=== PATIENT | female | born 1960 | race Two or more races ===

== ENCOUNTER 2025-06-04 09:49 | Emergency (ER) | payer MEDICAID, OTHER ==
[~2025-06-04] VITALS: Ht 167.6 cm; Wt 88.2 kg
[2025-06-04 09:53] VITALS: TEMP 98.1
--- NOTE | 2025-06-04 10:07 | ECG ---
[facility] Test Date: 2025-06-04 Test Time: 09:55:33 Pat Name: TABATHA DECKER Department: ED Room: Gender: F Shop Service Technician: AGUILAR : 1960 Requested By: PINEDA MCKAY Order Number: [id number] Reading MD: Wally Morse Measurements Intervals [place] Rate: 63 P: 22 ND: 174 QRS: -8 QRSD: 84 T: 47 QT: 426 QTc: 437 Interpretive Statements Sinus rhythm LVH by voltage Electronically Signed On 06-05-2025 17:02:40 PDT by Wally Morse Please click the below link to view image of tracing.
--- NOTE | 2025-06-04 10:39 | ED.PDOC ---
HPI (NEURO) HPI Comments This is a 65 year old female presenting to the ED with chief complaint of left arm weakness. Patient reports that she has been experiencing left arm weakness intermittently for the past few months, her most recent episode starting on Monday. Patient relays that she feels as if her arm is heavy. Patient states she has associated left sided neck pain. Patient notes she was seen at today regarding her complaint and was advised to come to the ED for further evaluation. Patient reports that she has a neurologist she visits for the same complaint, but all her imaging studies, including MRI, have come back normal. Patient denies any chest pain, SOB, numbness, dizziness, or headache. Chief Complaint: General Weakness Time Seen by MD: 10:37 Reviewed Notes: Nurses Notes, Medications, Allergies Information Source: Patient Mode of Arrival: Ambulatory Severity: Mild Dizziness/Weakness Severity: Does not affect activitie Timing: Months Duration: Intermittent Prehospital treatment: None Weakness Location: (L) Arm Onset: At rest Circumstances: Spontaneous Past Medical History PAST MEDICAL HISTORY: Denies Surgical History: Denies all surgeries SILK SNAPPER History: No Pertinent SILK SNAPPER History Family History Family History: Reviewed,noncontributory to illness Social History Smoker: Non-Smoker Alcohol: Denies ETOH Use Drugs: Denies Drug Use Lives In: Home Constitutional: denies: chills, diaphoresis, fatigue, fever, malaise, sweats, weakness, others EENTM: denies: blurred vision, double vision, ear bleeding, ear discharge, ear drainage, ear pain, ear ringing, eye pain, eye redness, hearing loss, mouth pain, mouth swelling, nasal discharge, nose bleeding, nose congestion, nose pain, photophobia, tearing, throat pain, throat swelling, voice changes, others Respiratory: denies: cough, hemoptysis, orthopnea, SOB at rest, shortness of breath, SOB with excertion, stridor, wheezing, others Cardiovascular: denies: chest pain, dizzy spells, diaphoresis, Dyspnea on exertion, edema, irregular heart beat, left arm pain, lightheadedness, palpitati ons, PND, syncope, others Gastrointestinal: denies: abdomen distended, abdominal pain, blood streaked bowels, constipated, diarrhea, dysphagia, difficulty swallowing, hematemesis, melena, nausea, poor appetite, poor fluid intake, rectal bleeding, rectal pain, vomiting, others Genitourinary: denies: abnormal vagina bleeding, burning, dyspareunia, dysuria, flank pain, frequency, hematuria, incontinence, pain, , vagina discharge, urgency, others Neurological: reports: left sided weakness; denies: dizziness, fainting, headache, left sided numbness, numbness, paresthesia, pre-existing deficit, right sided numbness, right sided weakness, seizure, speech problems, tingling, tremors, weakness, others Musculoskeletal: reports: neck pain; denies: back pain, gout, joint pain, joint swelling, muscle pain, muscle stiffness, others Integumetry: denies: bruises, change in color, change in hair/nails, dryness, laceration, lesions, lumps, rash, wounds, others Hematologic/Lymphatic: denies: anemia, blood clots, easy bleeding, easy bruising, swollen glands, others Endocrine: denies: excessive hunger, excessive sweating, excessive thirst, excessive urination, flushing, intolerance to cold, intolerance to heat, unexplained weight gain, unexplained weight loss, others Psychiatric: denies: anxiety, bipolar disorder, depression, hopeless, panic disorder, schizophrenia, sleepless, suicidal, others All Other Systems: Reviewed and Negative Physical Exam General Appearance: No Apparent Distress, Normal HEENT: Normal ENT Inspection, PERRL/EOMI, Pharynx Normal, TMs Normal Neck: Full Range of Motion, Limited Range of Motion, Normal, Normal Inspection, Tender Lateral Respiratory: Chest Non-Tender, Lungs Clear, No Accessory Muscle Use, No Respiratory Distress, Normal Breath Sounds Cardiovascular: No Edema, No JVD, No Murmur, No Gallop, Normal Peripheral Pulses, Regular Rate/Rhythm Breast Exam: Deferred Gastrointestinal: No Organomegaly, Non Tender, No Pulsatile Mass, Normal Bowel Sounds, Soft Genitalia: Deferred Pelvic: Deferred Rectal: Deferred Extremities: No calf tenderness, Normal capillary refill, Normal inspection, Normal range of motion, No pedal edema, Other (Left arm pain comes and goes was here for the same workup has been done it is all normal) Musculoskeletal : Apperance: Normal Neurologic: Alert, bilingual inside sales representative II-XII nml as Tested, No Motor Deficits, Normal Affect, Normal Mood, No Sensory Deficits Cerebellar Function: Normal Reflexes: Normal Skin: Dry, Normal Color, Warm Peripheral Pulses: 1+ carotid (R), 1+ carotid (L) Lymphatic: No Adenopathy EKG EKG : Pulse Rate (adult): 63 [place]: Normal Cardiac Rhythm: NSR Hypertrophy: LVH Was a procedure done? Was a procedure done?: No Differential Diagnosis (SZ) Seizure: N/A General Weakness: Anemia, Dehydration, Electrolyte imbalance, Renal failure Headache: N/A X-Ray, Labs, Meds, VS Vital Signs Date Time Temp Pulse Resp B/P (MAP) Pulse Ox O2 Delivery O2 Flow Rate FiO2 06/04/25 11:38 63 06/04/25 09:55 63 06/04/25 09:53 98.1 70 16 156/79 99 98.1 [place] [id number] Ph: [phone] DIAGNOSTIC IMAGING Diagnostic Imaging Report : [id number] Signed PATIENT: TABATHA DECKER ACCT: [id number] UNIT: [id number] : 1960 LOC: ER ROOM / BED: / AGE / SEX: 65 / F ADM STATUS: REG ER SERVICE 1056 ORDERING PHYSICIAN: PINEDA MCKAY MD PROCEDURE(s): CS2 - CERVICAL WITHOUT CONTRAST REASON: Neck pain radiating to the left arm ORDER NUMBER(s): [id number], ACCESSION NUMBER(s): [id number] EXAM: CT CERVICAL WITHOUT CONTRAST INDICATION: Neck pain radiating to the left arm EXAM DATE: 06/04/2025 11:02 AM COMPARISON: CT HEAD WO on DOS: 10/24/22 TECHNIQUE: Multiple axial CT images of the cervical spine were obtained using bone algorithm. Sagittal and coronal reformatting was done. Bone and soft tissue windows were reviewed. Radiation Dose Information: CT Dose: CTDI volume is 21.5 mGy. Dose-length product is 462.4 mGy*cm FINDINGS: The cervical alignment is intact. Reversal of the cervical lordosis. No acute cervical spine fracture is identified. The vertebral body heights are intact. No suspicious osseous lesions are identified. Multilevel intervertebral disc space narrowing. No significant spinal stenosis. Multilevel neural foraminal stenosis. There is no prevertebral soft tissue swelling. IMPRESSION: 1. No evidence of acute cervical spine fracture or traumatic malalignment. HS:Y All CT scans at this [facility] facility are performed using dose modulation techniques as appropriate to a performed exam including the following: Automated exposure control was utilized; adjustment of the MA and/or KV according to patient size; and use of iterative reconstruction technique. ATED BY: LETTY GARDINER MD DICTATED DATE/TIME: 06/04/25 1131 SIGNED BY: LETTY GARDINER MD SIGNED DATE/TIME: 06/04/25 113 CC: Time of 1ST Reevaluation: 11:37 Reevaluation 1ST: Unchanged Time of 2ND Reevaluation: 11:51 Reevaluation 2ND: Improved Consultation: PCP, Neurology Patient Education/Counseling: Diagnosis, Treatment, Prognosis, Need For Follow Up Family Education/Counseling: Diagnosis, Treatment, Prognosis, Need For Follow Up, No Family Present Departure 1 Departure Time of Disposition: 11:51 Impression: Primary Impression: Cervical radiculopathy due to osteoarthritis of spine Additional Impression: Multilevel degenerative joint disease of spine Disposition: 01 HOME / SELF CARE / HOMELESS Condition: Fair Additional Instructions: Follow up with the neurologist and your PCP e-Prescriptions Dexamethasone (Decadron) 4 Mg Tb 4 MG PO BID for 7 Days, #14 TAB Prov: PINEDA MCKAY MD 06/04/25 Discharged With: Self Critical Care Note Critical Care Time?: No Stability Stability form required: No Heart Score Heart Score: Heart Score Response (Comments) Value History N/A 0 EKG Normal 0 Age >65 2 Risk Factors No known risk factors 0 Troponin N/A 0 Total 2 I personally scribed for PINEDA MCKAY MD ([email or web address]) on 06/04/25 at 10:39. Electronically submitted by Bernardo Gunter ([email or web address]). I personally scribed for PINEDA MCKAY MD ([email or web address]) on 06/04/25 at 11:59. Electronically submitted by Bernardo Gunter ([email or web address]). PINEDA MCKAY MD Jun 04, 2025 10:39
--- NOTE | 2025-06-04 11:34 | DVH ---
EXAM: CT CERVICAL WITHOUT CONTRAST INDICATION: Neck pain radiating to the left arm EXAM DATE: 06/04/2025 11:02 AM COMPARISON: CT HEAD WO on DOS: 10/24/22 TECHNIQUE: Multiple axial CT images of the cervical spine were obtained using bone algorithm. Sagitta l and coronal reformatting was done. Bone and soft tissue windows were reviewed. Radiation Dose Information: CT Dose: CTDI volume is 21.5 mGy. Dose-length product is 462.4 mGy*cm FINDINGS: The cervical alignment is intact. Reversal of the cervical lordosis. No acute cervical spine fracture is identified. The vertebral body heights are intact. No suspicious osseous lesions are identified. Multilevel intervertebral disc space narrowing. No significant spinal stenosis. Multilevel neural fo raminal stenosis. There is no prevertebral soft tissue swelling. IMPRESSION: 1. No evidence of acute cervical spine fracture or traumatic malalignment. HS:Y All CT scans at this medical facility are performed using dose modulation techniques as appropriate t o a performed exam including the following: Automated exposure control was utilized; adjustment of th e MA and/or KV according to patient size; and use of iterative reconstruction technique.
[2025-06-04] MEDS ORDERED: DEX4T PO (11:55)
[2025-06-04 12:57] VITALS: BP 138/73; PULSE 61; RESP 16; O2SAT 98
[2025-06-04] MEDS: KETOROLAC TROMETH 30 MG/ML 1ML VIAL IV ONE (13:00)
== END 2025-06-04 13:18 | disposition home or self-care (01) ==
LOC: ER 09:49
DX: M47.22 Other spondylosis with radiculopathy, cervical region (principal); M15.9 Polyosteoarthritis, unspecified
CPT/HCPCS: 72125; 93005; 96374; 99285; J1885